=== PATIENT | male | born 1965 | race Caucasian/White ===

== ENCOUNTER 2017-04-13 18:47 | Inpatient (IN) | payer OTHER ==
[~2017-04-13] VITALS: Ht 188 cm; Wt 126.0 kg
[~2017-04-13 18:47] MED LIST: ASPI81TA3 PO; DEXT5TAB17 PO; LEVO75TA84 PO; OMEP20CA16 PO
[2017-04-13] MEDS ORDERED: morphine 4 MG/ML VIAL IV STA (20:51)
[2017-04-13] MEDS ORDERED: ONDANSETRON 4 MG INJ IV STA (20:51)
[2017-04-13] MEDS ORDERED: SOD CHLORIDE 0.9% 1,000 ML IV STA (20:51)
[2017-04-13 21:16] LABS: BASOPHIL # 0.1 10^3/ul (0.0-0.1); BASOPHILS % 0.4 % (0.0-2.0); EOSINOPHILS % 0.2 % (0.0-7.0); HEMATOCRIT 47.6 % (42.0-52.0); HEMOGLOBIN 16.1 g/dl (14.0-18.0); LYMPHOCYTES # 1.4 10^3/ul (0.8-2.9); LYMPHOCYTES % 8.2 % (15.0-51.0); MEAN CORPUSCULAR HEMOGLOBIN 29.3 pg (29.0-33.0); MEAN CORPUSCULAR HGB CONC 33.8 g/dl (32.0-37.0); MEAN CORPUSCULAR VOLUME 86.7 fl (82.0-101.0); MEAN PLATELET VOLUME 10.1 fl (7.4-10.4); MONOCYTE # 0.6 10^3/ul (0.3-0.9); MONOCYTES % 3.3 % (0.0-11.0); NEUTROPHIL # 15.3 10^3/ul (1.6-7.5); NEUTROPHILS % 87.4 % (39.0-77.0); PLATELET COUNT 283 10^3/UL (140-415); RED BLOOD COUNT 5.49 10^6/ul (4.70-6.10); RED CELL DISTRIBUTION WIDTH 12.8 % (11.5-14.5); WHITE BLOOD COUNT 17.5 10^3/ul (4.8-10.8)
[2017-04-13] MEDS ORDERED: HYDROmorphONE 1 MG/ML SYG IV STA ×2 (21:32→23:28)
[2017-04-13] MEDS ORDERED: LEVO112T57 PO (21:42)
[2017-04-13] MEDS ORDERED: AMPH15CA7 PO (21:42)
[2017-04-13] MEDS ORDERED: SIMV20TA PO (21:43)
[2017-04-13] MEDS ORDERED: LOSA25TA5 PO (21:43)
[2017-04-13 21:44] LABS: ADD UMIC YES; ALBUMIN 4.9 g/dl (3.3-4.9); ALBUMIN/GLOBULIN RATIO 1.53; BILIRUBIN,INDIRECT 0.2 mg/dl (0-1.1); BILIRUBIN,TOTAL 0.2 mg/dl (0.2-1.3); CALCIUM 9.9 mg/dl (8.4-10.2); CREATININE 1.23 mg/dl (0.61-1.24); POTASSIUM 4.4 mmol/L (3.5-5.1); TOTAL PROTEIN 8.1 g/dl (6.1-8.1); UR ASCORBIC ACID NEGATIVE (NEGATIVE); UR BACTERIA FEW /HPF (NONE SEEN); UR BILIRUBIN (Dip) NEGATIVE (NEGATIVE); UR BLOOD (Dip) 3+ mg/dL (NEGATIVE); UR CLARITY CLEAR (CLEAR); UR COLOR YELLOW (YELLOW); UR GLUCOSE (Dip) NEGATIVE (NEGATIVE); UR KETONES (Dip) NEGATIVE (NEGATIVE); UR LEUKOCYTE ESTERASE (Dip) 2+ Leu/ul (NEGATIVE); UR MUCUS FEW /HPF (NONE SEEN); UR NITRITE (Dip) NEGATIVE (NEGATIVE); UR RBC 32 /HPF (0-5); UR SPECIFIC GRAVITY (Dip) 1.025 (1.003-1.030); UR TOTAL PROTEIN (Dip) 1+ mg/dl (NEGATIVE); UR UROBILINOGEN (Dip) NEGATIVE (NEGATIVE)
[2017-04-13] MEDS ORDERED: METF500T4 PO (21:44)
[2017-04-13] MEDS ORDERED: OMEP40CA6 PO (21:44)
[2017-04-13] MEDS ORDERED: hydrALAzine 20 MG INJ IV ONE (23:00)
[2017-04-13] MEDS ORDERED: CEFEPIME 1GM/50 ML (PMX) 50 ML IVPB ONE (23:00)
--- NOTE | 2017-04-13 23:15 | RADRPT ---
PROCEDURE: CT abdomen and pelvis without contrast. CLINICAL INDICATION: Right lateral abdominal pain. Flank pain. TECHNIQUE: CT of the abdomen and pelvis was performed without contrast. Coronal and sagittal reform atted images were obtained from the axial source images. Images were reviewed on a high-resolution [employer] workstation. The total exam CTDI equals 23.75 mGy and the total exam DLP equals 1454.39 mGy-cm. DICOM images are available. One or more of the following dose reduction techniques were used: - Automated exposure control. - Adjustment of the mA and/or kV according to patient size. - Use of iterative reconstruction technique. COMPARISON: None available. FINDINGS: Visualized lower thorax: The visualized lung bases are clear. The visualized heart is unremarkable. Hepatobiliary system and spleen: The liver is grossly unremarkable. There is no intra or extrahepat ic biliary ductal dilatation. The gallbladder is grossly unremarkable. The spleen is grossly unremar kable. The pancreas is grossly unremarkable. Adrenal glands and genitourinary system: The adrenal glands are grossly unremarkable. There is an o bstructing 4 mm stone in the distal right ureter with associated mild right hydronephrosis and hydro ureter and right perinephric and periureteral inflammatory change. There is a [address] one at the midportion of the left kidney. There is a punctate nonobstructing stone at the upper pole of the right kidney and a 4 mm nonobstructing stone at the midportion of the right kidney. The urin anup bladder is grossly unremarkable. The prostate gland and seminal vesicles are grossly unremarkabl e. There are moderate bilateral fat containing inguinal hernias. Gastrointestinal system: There is sigmoid diverticulosis without bowel wall thickening or evidence of obstruction. The appendix is in the right lower quadrant and is unremarkable. Peritoneum, vascular, and lymphatics: There is no free intraperitoneal air or free fluid. There is no mesenteric or retroperitoneal adenopathy. The aorta is nonaneurysmal. Musculoskeletal system and soft tissues: There is moderate to severe multilevel degenerative enthes opathy. There are no concerning osseous lesions. The soft tissues are unremarkable. IMPRESSION: 1. Obstructing 4 mm stone in the distal right ureter with associated mild right hydroureteronephros is. 2. Bilateral nonobstructing nephrolithiasis as above. 3. Moderate bilateral fat containing inguinal hernias. 4. Sigmoid diverticulosis. These findings discussed with Justin Bowling in the ED at 2313 hours on 04/13/2017. RPTAT: HLBP .Dhiraj Herrera MD, Date Time Electronically viewed and signed by .Dhiraj Herrera MD, on 04/13/2017 23:15 .P/
[2017-04-13] MEDS ORDERED: OXYCODONE/ACETAMINOPHEN (10/325) TAB PO ONE (23:30)
[2017-04-13] MEDS ORDERED: SOD CHLORIDE 0.9% 1,000 ML IV ONE (23:30)
[2017-04-14] MEDS ORDERED: ONDANSETRON 4 MG INJ IV PRN
[2017-04-14] MEDS ORDERED: AMLODIPINE 10 MG TAB PO ONE
[2017-04-14] MEDS ORDERED: ACETAMINOPHEN 325 MG TAB PO PRN
--- NOTE | 2017-04-14 00:01 | ERD ---
ER Documentation Chief Complaint Chief Complaint bib self, cc: right sided pain since this morning HPI This 51-year-old male presents for right lateral flank/side pain that began this morning. The pain is excruciating and severe. States that he was Sandro taking ciprofloxacin for a urinary tract infection. Has had nausea. Denies chest pain, shortness of breath, fever or chills. He is sharp and nothing is worked for it. ROS All systems reviewed and are negative except as per history of present illness. Medications Home Meds Reported Medications Metformin Hcl* (Metformin Hcl*) 500 Mg Tablet, 500 MG PO WITH BREAKFAST DINNE, # 60 TAB 04/13/17 Omeprazole* (Omeprazole*) 40 Mg Capsule.dr, 40 MG PO DAILY, #30 CAP 04/13/17 Losartan Potassium* (Losartan Potassium*) 25 Mg Tablet, 25 MG PO DAILY, TAB 04/13/17 Simvastatin* (Zocor*) 20 Mg Tablet, 20 MG PO QHS, #30 TAB 04/13/17 Levothyroxine Sodium* (Levothyroxine Sodium*) 112 Mcg Tablet, 112 MCG PO BEFORE BREAKFAST, #30 TAB 04/13/17 Amphet Rhj-Ppblwv-C-Amphet (Adderall XR) 15 Mg Cap.sr.24h, 15 MG PO BID, CAP 04/13/17 Discontinued Reported Medications Aspirin* (Aspirin* Chew) 81 Mg Tab.chew, 81 MG PO DAILY, TAB.CHEW 04/21/16 Omeprazole* (Omeprazole*) 20 Mg Capsule.dr, 20 MG PO BID, #60 CAP 04/21/16 Levothyroxine Sodium* (Synthroid*) 75 Mcg Tablet, 75 MCG PO BEFORE BREAKFAST, # 30 TAB 04/21/16 Amphet Xza-Mqhnov-M-Amphet (Adderall) 5 Mg Tablet, 5 MG PO DAILY, TAB 04/21/16 Allergies Allergies: Coded Allergies: Sulfa (Sulfonamide Antibiotics) (Unverified Allergy, Unknown, 04/13/17) PMhx/Soc History of Surgery: No Anesthesia Reaction: No Hx Neurological Disorder: No Hx Respiratory Disorders: Yes (Sleep apnea) Hx Cardiac Disorders: No Hx Psychiatric Problems: Yes (ADD) Hx Miscellaneous Medical Probl: No Hx Alcohol Use: No Hx Substance Use: No Hx Tobacco Use: No Smoking Status: Never smoker Physical Exam Vitals Vital Signs Date Time Temp Pulse Resp B/P Pulse Ox O2 Delivery O2 Flow Rate FiO2 04/13/17 21:00 98.2 50 12 212/91 100 Room Air 04/13/17 19:45 98.2 66 18 210/102 100 Physical Exam Const: [] Severe distress, screaming, writhing Head: Atraumatic Eyes: Normal Conjunctiva ENT: Normal External Ears, Nose and Mouth. Neck: Full range of motion..~ No meningismus. Resp: Clear to auscultation bilaterally Cardio: Regular bradycardia, no murmurs Abd: Soft, non tender anteriorly, non distended. Normal bowel sounds Skin: No petechiae or rashes Back: No midline or flank tenderness or CVA tenderness difficult to distinguish his patient is in severe pain already. Ext: No cyanosis, or edema Neur: Awake and alert 3, no focal deficits Psych: Normal Mood and Affect Result Diagram: 04/13/17204904/13/172049 Results 24 hrs Laboratory Tests Test 04/13/17 20:06 04/13/17 20:50 Bedside Glucose 166mg/dL White Blood Count 17.510^3/ul Red Blood Count 5.4910^6/ul Hemoglobin 16.1g/dl Hematocrit 47.6% Mean Corpuscular Volume 86.7fl Mean Corpuscular Hemoglobin 29.3pg Mean Corpuscular Hemoglobin Concent 33.8g/dl Red Cell Distribution Width 12.8% Platelet Count 24084^3/UL Mean Platelet Volume 10.1fl Neutrophils % 87.4% Lymphocytes % 8.2% Monocytes % 3.3% Eosinophils % 0.2% Basophils % 0.4% Nucleated Red Blood Cells % 0.0/100WBC Neutrophils # 15.310^3/ul Lymphocytes # 1.410^3/ul Monocytes # 0.610^3/ul Eosinophils # 0.010^3/ul Basophils # 0.110^3/ul Nucleated Red Blood Cells # 0.010^3/ul Urine Color YELLOW Urine Clarity CLEAR Urine pH 5.0 Urine Specific [place] 1.025 Urine Ketones NEGATIVEmg/dL Urine Nitrite NEGATIVEmg/dL Urine Bilirubin NEGATIVEmg/dL Urine Urobilinogen NEGATIVEmg/dL Urine Leukocyte Esterase 2+Leti/ul Urine Microscopic RBC 32/HPF Urine Microscopic WBC 5/HPF Urine Bacteria FEW/HPF Urine Mucus FEW/HPF Urine Hemoglobin 3+mg/dL Urine Glucose NEGATIVEmg/dL Urine Total Protein 1+mg/dl Sodium Level 143mmol/L Potassium Level 4.4mmol/L Chloride Level 102mmol/L Carbon Dioxide Level 27mmol/L Anion Gap 18 Blood Urea Nitrogen 15mg/dl Creatinine 1.23mg/dl Glucose Level 170mg/dl Calcium Level 9.9mg/dl Total Bilirubin 0.2mg/dl Direct Bilirubin 0.00mg/dl Indirect Bilirubin 0.2mg/dl Aspartate Amino Transf (AST/SGOT) 19IU/L Alanine Aminotransferase (ALT/SGPT) 33IU/L Alkaline Phosphatase 103IU/L Troponin I < 0.012ng/ml Total Protein 8.1g/dl Albumin 4.9g/dl Globulin 3.20g/dl Albumin/Globulin Ratio 1.53 Lipase 60U/L Current Medications Medications (Trade) Dose Ordered Sig/Juan Route PRN Reason Start Time Stop Time Status Last Admin Dose Admin Sodium Chloride (NS) 1,000 ml @ 1,000 mls/hr Q1H STAT IV 04/13/17 20:51 04/13/17 21:50 DC 04/13/17 21:10 Morphine Sulfate (morphine) 8 mg ONCE STAT IV 04/13/17 20:51 04/13/17 20:53 DC 04/13/17 21:10 Ondansetron HCl (Zofran Inj) 4 mg ONCE STAT IV 04/13/17 20:51 04/13/17 20:53 DC 04/13/17 21:09 Hydromorphone HCl 1 mg 1 mg ONCE STAT IV 04/13/17 21:32 04/13/17 21:34 DC 04/13/17 21:45 Cefepime HCl (Maxipime 1gm/50 ml (Pmx)) 50 ml @ 100 mls/hr ONCE ONCE IVPB 04/13/17 23:00 04/13/17 23:29 DC 04/13/17 23:29 Hydralazine HCl (Apresoline) 10 mg ONCE ONCE IV 04/13/17 23:00 04/13/17 23:01 DC 04/13/17 23:30 Hydromorphone HCl (Dilaudid) 1 mg ONCE STAT IV 04/13/17 23:28 04/13/17 23:29 DC 12/12/17 23:41 Oxycodone/ Acetaminophen 1 tab 1 tab ONCE ONCE PO 04/13/17 23:30 04/13/17 23:31 DC Sodium Chloride (NS) 1,000 ml @ 1,000 mls/hr Q1H ONCE IV 04/13/17 23:30 04/14/17 00:29 Ondansetron HCl (Zofran Inj) 4 mg BRIDGE ORDER PRN IV NAUSEA AND/OR VOMITING 04/14/17 00:00 04/14/17 23:59 Acetaminophen (Tylenol Tab) 650 mg ER BRIDGE PRN PO MILD PAIN/FEVER 04/14/17 00:00 04/14/17 23:59 Amlodipine Besylate (Norvasc) 10 mg ONCE ONCE PO 04/14/17 00:00 04/14/17 00:01 Procedures/MDM Ureteral stone with intractable pain as well as UTI. Patient was given IV fluids Zofran initially 8 mg of morphine which took the edge off his pain he still had severe pain was given a milligram of Dilaudid. This helped his pain differently for short time although he still remained severely hypertensive in the meantime. He was given labetalol for the hypertension quite additionally Dilaudid when pain returned. He was also given a gram of cefepime and urine culture was obtained. Patient can be discharged home because his pain returns immediately after Dilaudid wears off. I do not have suspicion for drug-seeking in this patient. Did have bradycardia but this was consistent and stable. Has no chest pain or shortness of breath. Patient has knee surgery scheduled for tomorrow and still may be able to have that done. Spoke with Dr. Valencia will be admitting. CT abdomen pelvis interpretation: 4 mm distal ureteral stone with mild hydronephrosis. No bowel obstruction, no free air, no abnormal fat stranding, no fractures. EKG interpretation: Sinus bradycardia rate of 51, normal axis, no ST or T-wave changes concerning for acute ischemia. Normal intervals. Normal except for bradycardia. Monitor interpretation: Consistent sinus bradycardia rate of high 40s and 50s. No arrhythmia Departure Diagnosis: Primary Impression: Intractable pain Additional Impressions: Ureteral stone UTI (urinary tract infection) Condition: Serious PATY LOPEZ DO Apr 14, 2017 00:01
[2017-04-14] MEDS ORDERED: NACL 0.9% 3 ML SYG IV SCH (00:30)
[2017-04-14 01:00] VITALS: TEMP 98.2
[2017-04-14] MEDS ORDERED: hydrALAzine 20 MG INJ IV PRN (01:00)
[2017-04-14 01:48] VITALS: BP 185/80; PULSE 58; RESP 18; Ht 188 cm; Wt 126.0 kg
[2017-04-14 02:30] VITALS: BP 130/70; PULSE 82; RESP 18
[2017-04-14] MEDS: SOD CHLORIDE 0.9% 1,000 ML IV SCH ×4 (02:34→20:01)
[2017-04-14] MEDS: LEVOFLOXACIN 750MG/D5W (PMX) 150 ML IVPB SCH (02:35)
[2017-04-14] MEDS: TAMSULOSIN (SR) 0.4 MG CAP PO SCH ×3 (02:35→20:55)
[2017-04-14 05:13] LABS: BASOPHILS % 0.2 % (0.0-2.0); EOSINOPHILS # 0.1 10^3/ul (0.0-0.5); EOSINOPHILS % 0.3 % (0.0-7.0); HEMATOCRIT 40.4 % (42.0-52.0); HEMOGLOBIN 14.2 g/dl (14.0-18.0); LYMPHOCYTES # 2.1 10^3/ul (0.8-2.9); LYMPHOCYTES % 12.8 % (15.0-51.0); MEAN CORPUSCULAR HGB CONC 35.1 g/dl (32.0-37.0); MEAN CORPUSCULAR VOLUME 85.4 fl (82.0-101.0); MEAN PLATELET VOLUME 10.1 fl (7.4-10.4); MONOCYTE # 0.9 10^3/ul (0.3-0.9); MONOCYTES % 5.3 % (0.0-11.0); NEUTROPHIL # 13.1 10^3/ul (1.6-7.5); NEUTROPHILS % 80.9 % (39.0-77.0); PLATELET COUNT 230 10^3/UL (140-415); RED BLOOD COUNT 4.73 10^6/ul (4.70-6.10); RED CELL DISTRIBUTION WIDTH 13.1 % (11.5-14.5); WHITE BLOOD COUNT 16.2 10^3/ul (4.8-10.8)
[2017-04-14 05:34] LABS: ALBUMIN 3.6 g/dl (3.3-4.9); ALBUMIN/GLOBULIN RATIO 1.28; BILIRUBIN,INDIRECT 0.4 mg/dl (0-1.1); BILIRUBIN,TOTAL 0.4 mg/dl (0.2-1.3); CALCIUM 8.9 mg/dl (8.4-10.2); CREATININE 0.92 mg/dl (0.61-1.24); MAGNESIUM 1.6 mg/dl (1.7-2.5); TOTAL PROTEIN 6.4 g/dl (6.1-8.1)
[2017-04-14 05:56] LABS: THYROID STIMULATING HORMONE 5.03 MIU/L (0.465-4.680)
[2017-04-14] MEDS: CEPASTAT LOZENGE MT PRN (06:27)
[2017-04-14 08:24] VITALS: BP 152/81; RESP 18
--- NOTE | 2017-04-14 08:43 | HP ---
Date/Time of Note Date/Time of Note DATE: 04/14/17 TIME: 08:32 Assessment/Plan VTE Prophylaxis VTE Prophylaxis Intervention: SCD's Lines/Catheters IV Catheter Type (from [facility]): Peripheral IV Urinary Cath still in place: No Assessment/Plan Chief Complaint/Hosp Course This is a 51-year-old male being admitted to the [facility] for: #1 symptomatic nephrolithiasis: CT scan of the abdomen pelvis shows:Obstructing 4 mm stone in the distal right ureter with associated mild right hydroureteronephrosis. Bilateral nonobstructing nephrolithiasis as above. The current time patient is afebrile. He does also have a urinary tract infection. Will provide patient with aggressive fluid hydration. Will put patient on Flomax twice daily. Dilaudid IV for pain control. Will consult urology. #2 nephrolithiasis: Patient has multiple stones varying in size please see CT report for further details. There also is an obstructing 4 mm stone in the distal ureter. The current time will put patient on Flomax. Aggressive fluid hydration. Again we will consult urology. #3 mild right hydroureteronephrosis: Again patient is urinating without difficulty. Will provide aggressive IV fluid hydration. Flomax. Will consult urology. #4 urinary tract infection: Start the patient on Levaquin, will obtain urine culture. #5 diabetes: We will hold patient's metformin. Start insulin sliding scale. Keep the patient n.p.o. at this time. #6 ADHD: Resume patient on medication #7 postnasal drip: Resume patient's home PPI which was provided by his ENT #8 hyperlipidemia: Continue statin #9 obesity: We will check a thyroid panel, lipid panel, A1c #10 hypothyroidism: Continue levothyroxine check a TSH #11 left meniscal injury: Patient was scheduled to have an arthroscopic surgery today by orthopedic surgery. We will contact the surgeon Dr. MARIN and update them on the patient's current clinical condition. #12 DVT GI prophylaxis: SCDs, home PPI Further treatment strategy will be implemented as per the clinical course Problems: HPI/ROS Admit Date/Time Admit Date/Time Apr 13, 2017 at 23:49 Hx of Present Illness Chief complaint: right flank pain This is a 51-year-old male who presented to the emergency department complaining of right-sided flank pain. Patient stated the pain was severe and started on his right flank and then moved towards the right lower abdomen. He was expressing some nausea. Pain is the most severe pain is felt in his life. He did receive relief from Dilaudid in the ED. He denies any known history of kidney stones. Of note patient also scheduled to have on 04/14 a left knee arthroscopy for meniscal injury, like us to contact his surgeon Dr. Marin. Allergies: Sulfa Medications: See JUL ROS Const: As per HPI Eyes : No pain discharge or redness or change in visual acuity ENT: No pain, sore throat, congestion, congestion, dysphagia or discharge Respiratory: No shortness of breath, cough, sputum, wheezing, or pleuritic pain Cardiovascular: No chest pain, palpitation, PND, or edema GI : no change in appetite, abdominal pain, nausea, vomiting, diarrhea, constipation, or change in the color his stool Genitourinary: As per HPI Musculoskeletal: No joint pain, back pain, neck pain, restricted range of motion in neck or joints Skin: No rash, bruising or hives Neuro: No headache, dizziness, syncope, seizure, focal weakness Endocrine: No polyuria, polydipsia, temperature intolerance Psych: No hallucination, depression, anxiety or suicidal ideation PMH/Family/Social Past Medical History Diabetes mellitus, hypothyroidism, hypertension, hyperlipidemia, attention deficit disorder, postnasal drip, left meniscal tear Past Surgical History Past Surgical Hx: no surgical history Family History Significant Family History: no pertinent family hx Social History Alcohol Use: none Smoking Status: Never smoker Drug Use: none Exam/Review of Systems Vital Signs Vitals Vital Signs Date Time Temp Pulse Resp B/P Pulse Ox O2 Delivery O2 Flow Rate FiO2 04/14/17 08:24 98.6 18 18 152/81 96 04/14/17 02:30 Room Air Intake and Output 04/13/17 04/13/17 04/14/17 15:00 23:00 07:00 Intake Total 1500 ml Output Total 1900 ml Balance -400 ml Exam Exam General: Patient is an obese male lying in bed comfortably at this time in no acute distress HEENT: Atraumatic, normocephalic. The pupils are equal, round and reactive. Extraocular motor are intact Neck: Supple with full range of motion. No rigidity or meningismus Chest: Nontender Lungs: Clear to auscultation bilaterally no crackles rales or wheezing Heart: Normal S1-S2, Regular rhythm and rate. No murmur, S3, or S4 Abdomen: Soft , nontender, nondistended , bowel sounds are present. No guarding no rebound tenderness , No masses or organomegaly. No costovertebral temporal angle mass Extremities: Normal to inspection, no edema no cyanosis Genitourinary: No CVA tenderness bilaterally. Neurologic: Normal mental status, speech normal, cranial nerves II through XII are intact, motor and sensory are intact, no focal weakness Additional Comments PROCEDURE: CT abdomen and pelvis without contrast. CLINICAL INDICATION: Right lateral abdominal pain. Flank pain. TECHNIQUE: CT of the abdomen and pelvis was performed without contrast. Coronal and sagittal reformatted images were obtained from the axial source images. Images were reviewed on a high-resolution [employer] workstation. The total exam CTDI equals 23.75 mGy and the total exam DLP equals 1454.39 mGy-cm. DICOM images are available. One or more of the following dose reduction techniques were used: - Automated exposure control. - Adjustment of the mA and/or kV according to patient size. - Use of iterative reconstruction technique. COMPARISON: None available. FINDINGS: Visualized lower thorax: The visualized lung bases are clear. The visualized heart is unremarkable. Hepatobiliary system and spleen: The liver is grossly unremarkable. There is no intra or extrahepatic biliary ductal dilatation. The gallbladder is grossly unremarkable. The spleen is grossly unremarkable. The pancreas is grossly unremarkable. Adrenal glands and genitourinary system: The adrenal glands are grossly unremarkable. There is an obstructing 4 mm stone in the distal right ureter with associated mild right hydronephrosis and hydroureter and right perinephric and periureteral inflammatory change. There is a 6 mm nonobstructing stone at the midportion of the left kidney. There is a punctate nonobstructing stone at the upper pole of the right kidney and a 4 mm nonobstructing stone at the midportion of the right kidney. The urinary bladder is grossly unremarkable. The prostate gland and seminal vesicles are grossly unremarkable. There are moderate bilateral fat containing inguinal hernias. Gastrointestinal system: There is sigmoid diverticulosis without bowel wall thickening or evidence of obstruction. The appendix is in the right lower quadrant and is unremarkable. Peritoneum, vascular, and lymphatics: There is no free intraperitoneal air or free fluid. There is no mesenteric or retroperitoneal adenopathy. The aorta is nonaneurysmal. Musculoskeletal system and soft tissues: There is moderate to severe multilevel degenerative enthesopathy. There are no concerning osseous lesions. The soft tissues are unremarkable. IMPRESSION: 1. Obstructing 4 mm stone in the distal right ureter with associated mild right hydroureteronephrosis. 2. Bilateral nonobstructing nephrolithiasis as above. 3. Moderate bilateral fat containing inguinal hernias. 4. Sigmoid diverticulosis. These findings discussed with Paty Lopez in the ED at 2313 hours on 2016. RPTAT: HLBP .Dhiraj Herrera MD, MD Date Time Electronically viewed and signed by .Dhiraj Herrera MD, on 04/13/2017 23:15 .P/ CC: PATY LOPEZ DO Labs Result Diagram: 04/14/17 04404/14/17 0441 Medications Medications Current Medications Sodium Chloride (NS) 1,000 ml @ 150 mls/hr Q6H40M IV Last administered on 02:34; Admin Dose 150 MLS/HR; Start 04/14/17 at 00:15 Hydromorphone HCl (Dilaudid) 1 mg Q3H PRN IV PAIN LEVEL 7-10; Start 04/14/17 at 00:30 Tamsulosin HCl 0.4 mg 0.4 mg BID PO Last administered on 04/14/17 02:35; Admin Dose 0.4 MG; Start 04/14/17 at 00:30 Levofloxacin/ Dextrose (Levaquin 750 Mg/ D5W 150 ml (Pmx)) 150 ml @ 100 mls/hr Q24H IVPB Last administered on 04/14/17 02:35; Admin Dose 100 MLS/HR; Start 04/14/17 at 00:30 Hydralazine HCl (Apresoline) 10 mg Q4H PRN IV ELEVATED SYSTOLIC BP; Start at 01:00 Phenol (Cepastat Lozenge) 1 lozenge Q1H PRN MT soar throat Last administered on 04/14/17 06:27; Admin Dose 1 LOZENGE; Start 04/14/17 at 04:30 ROSA GARDUNO Apr 14, 2017 08:42
--- NOTE | 2017-04-14 08:47 | CONS ---
Date/Time of Note Date/Time of Note DATE: 04/14/17 TIME: 08:38 Assessment/Plan Assessment/Plan Chief Complaint/Hosp Course 51-year-old male presented to the emergency room was right flank pain, CT scan of the abdomen and pelvis showed a 4 mm stone in the distal right ureter was right hydronephrosis in addition to bilateral kidney stones. The kidney stones are not obstructing. Plan is to strain the urine, give him pain medications, continue the Flomax and get a KUB to see if the stone is radiopaque. He should be able to pass the stone on his own and if he does not we could always do a cystoscopy right ureteroscopy laser lithotripsy and remove the stone Problems: Consultation Date/Type/Reason Admit Date/Time Apr 13, 2017 at 23:49 Date of Consultation: Apr 14, 2017 Type of Consultation: Urology Reason for Consultation Distal right ureteral stone Referring Provider: ROSA GARDUNO Hx of Present Illness 51-year-old male presented to the emergency room was right flank pain. CT scan of the abdomen and pelvis showed distal right ureteral stone with hydronephrosis. The patient denies having any history of kidney stones before. Constitutional: no complaints Eyes: no complaints ENT: no complaints Respiratory: no complaints Cardiovascular: no complaints Gastrointestinal: No nausea, No vomiting Genitourinary: flank pain, No dysuria Musculoskeletal: no complaints, other (Left knee pain, he was supposed to have arthroscopy for the knee today) Skin: no complaints Neurologic: no complaints Endocrine: no complaints Lymphatic: no complaints Psychological: no complaints Past Medical History Medical History: diabetes, high cholesterol, hypertension, hypothyroid, other ( Obesity) Past Surgical History Past Surgical Hx: no surgical history Social History Smoking Status: Never smoker Exam/Review of Systems Vital Signs Vitals Vital Signs Date Time Temp Pulse Resp B/P Pulse Ox O2 Delivery O2 Flow Rate FiO2 04/14/17 08:24 98.6 18 18 152/81 96 04/14/17 02:30 Room Air Intake and Output 04/13/17 04/13/17 04/14/17 15:00 23:00 07:00 Intake Total 1500 ml Output Total 1900 ml Balance -400 ml Exam Constitutional: alert, oriented Psych: no complaints Head: normocephalic Eyes: nl conjunctiva ENMT: nl external ears & nose Neck: supple Respiratory: normal air movement Cardiovascular: No jugular venous distention (JVD) Gastrointestinal: soft Genitourinary - Male: CVA tenderness (Right side), nl penis, nl scrotum Musculoskeletal: nl extremities to inspection Extremities: other (Left knee pain) Skin: nl turgor Lymph: nl lymph nodes Results Result Diagram: 04/14/17 0441 04/14/17 0441 Results 24 hrs Laboratory Tests Test 04/13/17 20:06 04/13/17 20:50 04/14/17 04:41 Bedside Glucose 166 White Blood Count 17.5 H 16.2 H Red Blood Count 5.49 4.73 Hemoglobin 16.1 14.2 Hematocrit 47.6 40.4 L Mean Corpuscular Volume 86.7 85.4 Mean Corpuscular Hemoglobin 29.3 30.0 Mean Corpuscular Hemoglobin Concent 33.8 35.1 Red Cell Distribution Width 12.8 13.1 Platelet Count 283 230 Mean Platelet Volume 10.1 10.1 Neutrophils % 87.4 H 80.9 H Lymphocytes % 8.2 L 12.8 L Monocytes % 3.3 5.3 Eosinophils % 0.2 0.3 Basophils % 0.4 0.2 Nucleated Red Blood Cells % 0.0 0.0 Neutrophils # 15.3 H 13.1 H Lymphocytes # 1.4 2.1 Monocytes # 0.6 0.9 Eosinophils # 0.0 0.1 Basophils # 0.1 0.0 Nucleated Red Blood Cells # 0.0 0.0 Urine Color YELLOW Urine Clarity CLEAR Urine pH 5.0 Urine Specific [place] 1.025 Urine Ketones NEGATIVE Urine Nitrite NEGATIVE Urine Bilirubin NEGATIVE Urine Urobilinogen NEGATIVE Urine Leukocyte Esterase 2+ H Urine Microscopic RBC 32 H Urine Microscopic WBC 5 Urine Bacteria FEW A Urine Mucus FEW A Urine Hemoglobin 3+ H Urine Glucose NEGATIVE Urine Total Protein 1+ H Sodium Level 143 140 Potassium Level 4.4 4.0 Chloride Level 102 105 Carbon Dioxide Level 27 26 Anion Gap 18 H 13 Blood Urea Nitrogen 15 12 Creatinine 1.23 0.92 Glucose Level 170 124 # Calcium Level 9.9 8.9 Total Bilirubin 0.2 0.4 Direct Bilirubin 0.00 0.00 Indirect Bilirubin 0.2 0.4 Aspartate Amino Transf (AST/SGOT) 19 17 Alanine Aminotransferase (ALT/SGPT) 33 26 Alkaline Phosphatase 103 69 Troponin I < 0.012 Total Protein 8.1 6.4 # Albumin 4.9 3.6 # Globulin 3.20 2.80 Albumin/Globulin Ratio 1.53 1.28 Lipase 60 Activated Partial Thromboplast Time 29.5 Hemoglobin A1c 5.8 Magnesium Level 1.6 L Thyroid Stimulating Hormone (TSH) 5.030 H Imaging Free Text/Dictation CT scan of the abdomen and pelvis 1. Obstructing 4 mm stone in the distal right ureter with associated mild right hydroureteronephrosis. 2. Bilateral nonobstructing nephrolithiasis 3. Moderate bilateral fat containing inguinal hernias. 4. Sigmoid diverticulosis. Medications Medications Current Medications Sodium Chloride (NS) 1,000 ml @ 150 mls/hr Q6H40M IV Last administered on 02:34; Admin Dose 150 MLS/HR; Start 04/14/17 at 00:15 Hydromorphone HCl (Dilaudid) 1 mg Q3H PRN IV PAIN LEVEL 7-10; Start 04/14/17 at 00:30 Tamsulosin HCl 0.4 mg 0.4 mg BID PO Last administered on 04/14/17 02:35; Admin Dose 0.4 MG; Start 04/14/17 at 00:30 Levofloxacin/ Dextrose (Levaquin 750 Mg/ D5W 150 ml (Pmx)) 150 ml @ 100 mls/hr Q24H IVPB Last administered on 04/14/17 02:35; Admin Dose 100 MLS/HR; Start 04/14/17 at 00:30 Hydralazine HCl (Apresoline) 10 mg Q4H PRN IV ELEVATED SYSTOLIC BP; Start at 01:00 Phenol 1 lozenge 1 lozenge Q1H PRN MT soar throat Last administered on 06:27; Admin Dose 1 LOZENGE; Start 04/14/17 at 04:30 Magnesium Sulfate (Magnesium Sulfate 2 Gm/50 ml) 50 ml @ 25 mls/hr ONCE ONCE IVPB ; Start 04/14/17 at 08:30; Stop 04/14/17 at 10:29; Status UNV Miscellaneous Information 15 mg BID PO ; Start 04/14/17 at 09:00; Status UNV Miscellaneous Information 40 mg DAILY PO ; Start 04/14/17 at 09:00; Status UNV Miscellaneous Information 20 mg QHS PO ; Start 04/14/17 at 21:00; Status JOEYV ANGELIQUE RUIZ MD Apr 14, 2017 08:47
[2017-04-14] MEDS ORDERED: MAGNESIUM SULFATE 2 GM/50 ML 50 ML IVPB ONE (09:00)
[2017-04-14] MEDS ORDERED: AMPHET ASP AMPHET D AMPHET PO SCH (09:00)
[2017-04-14] MEDS: HYDROmorphONE 0.5 MG/0.5 ML SYG IV PRN ×2 (09:09→14:15)
--- NOTE | 2017-04-14 13:59 | PN ---
Date/Time of Note Date/Time of Note DATE: 04/14/17 TIME: 13:59 Assessment/Plan VTE Prophylaxis VTE Prophylaxis Intervention: SCD's Lines/Catheters IV Catheter Type (from Nrsg): Peripheral IV Urinary Cath still in place: No Assessment/Plan Assessment/Plan 1. Nephrolithiasis with hydroureteronephrosis - Patient still experiencing significant amount of pain. Will add Toradol for short time PRN for pain in addition to [place]. Had Dilaudid on board and advised to ask for the other medications first - Dr. Hernandes on board and recommendations appreciated. KUB ordered for tomorrow and continue aggressive hydration, Flomax, and believes patient should pass stone on his own. If not may need cystoscopy, lithotripsy, and removal of stone. - CT scan of the abdomen pelvis shows "Obstructing 4 mm stone in the distal right ureter with associated mild right hydroureteronephrosis. Bilateral nonobstructing nephrolithiasis as above." 2. UTI - Patient started on levaquin - cultures pending 3. DM - holding home metformin - ISS and accuchecks - Carb control diet 4. ADHD - continue on home medication 5. Postnasal drip - continue home PPI which was provided by his ENT 6. hyperlipidemia - Continue statin 7. obesity 8. Hypothyroidism - Continue levothyroxine - TSH slightly elevated and will advise to have TSH checked once acute issues resolve 9. Left meniscal injury - Scheduled for an arthroscopic surgery today by orthopedic surgery. Dr. Marin aware and postponing surgery 10. Disposition - continue monitoring until improvement in condition Subjective 24 Hr Interval Summary Free Text/Dictation Patient still experiencing significant amount of pain and got a little relief with Dilaudid. Patient does not believe he has passed the stone yet. Pain is worse with change in positioning. Exam/Review of Systems Vital Signs Vitals Vital Signs Date Time Temp Pulse Resp B/P Pulse Ox O2 Delivery O2 Flow Rate FiO2 04/14/17 08:24 98.6 18 18 152/81 96 04/14/17 02:30 Room Air Intake and Output 04/13/17 04/13/17 04/14/17 14:59 22:59 06:59 Intake Total 1500 ml Output Total 1900 ml Balance -400 ml Exam General: Obese male, distress with movement secondary to pain HEENT: NC/AT. PERRL, EOMI Neck: Supple with full range of motion. Lungs: Clear to auscultation bilaterally no crackles rales or wheezing Heart: Normal S1-S2, Regular rhythm and rate. No murmur, S3, or S4 Abdomen: Soft , nontender, nondistended , bowel sounds are present. No guarding no rebound tenderness Extremities: Normal to inspection, no edema no cyanosis Genitourinary: No CVA tenderness bilaterally. Neurologic: Normal mental status, speech normal, cranial nerves II through XII are intact, motor and sensory are intact, no focal weakness Results Result Diagram: 04/14/1744004/14/17440 Results 24 hrs Laboratory Tests Test 04/13/17 20:06 04/13/17 20:50 04/14/17 04:41 Bedside Glucose 166 White Blood Count 17.5 H 16.2 H Red Blood Count 5.49 4.73 Hemoglobin 16.1 14.2 Hematocrit 47.6 40.4 L Mean Corpuscular Volume 86.7 85.4 Mean Corpuscular Hemoglobin 29.3 30.0 Mean Corpuscular Hemoglobin Concent 33.8 35.1 Red Cell Distribution Width 12.8 13.1 Platelet Count 283 230 Mean Platelet Volume 10.1 10.1 Neutrophils % 87.4 H 80.9 H Lymphocytes % 8.2 L 12.8 L Monocytes % 3.3 5.3 Eosinophils % 0.2 0.3 Basophils % 0.4 0.2 Nucleated Red Blood Cells % 0.0 0.0 Neutrophils # 15.3 H 13.1 H Lymphocytes # 1.4 2.1 Monocytes # 0.6 0.9 Eosinophils # 0.0 0.1 Basophils # 0.1 0.0 Nucleated Red Blood Cells # 0.0 0.0 Urine Color YELLOW Urine Clarity CLEAR Urine pH 5.0 Urine Specific [place] 1.025 Urine Ketones NEGATIVE Urine Nitrite NEGATIVE Urine Bilirubin NEGATIVE Urine Urobilinogen NEGATIVE Urine Leukocyte Esterase 2+ H Urine Microscopic RBC 32 H Urine Microscopic WBC 5 Urine Bacteria FEW A Urine Mucus FEW A Urine Hemoglobin 3+ H Urine Glucose NEGATIVE Urine Total Protein 1+ H Sodium Level 143 140 Potassium Level 4.4 4.0 Chloride Level 102 105 Carbon Dioxide Level 27 26 Anion Gap 18 H 13 Blood Urea Nitrogen 15 12 Creatinine 1.23 0.92 Glucose Level 170 124 # Calcium Level 9.9 8.9 Total Bilirubin 0.2 0.4 Direct Bilirubin 0.00 0.00 Indirect Bilirubin 0.2 0.4 Aspartate Amino Transf (AST/SGOT) 19 17 Alanine Aminotransferase (ALT/SGPT) 33 26 Alkaline Phosphatase 103 69 Troponin I < 0.012 Total Protein 8.1 6.4 # Albumin 4.9 3.6 # Globulin 3.20 2.80 Albumin/Globulin Ratio 1.53 1.28 Lipase 60 Activated Partial Thromboplast Time 29.5 Hemoglobin A1c 5.8 Magnesium Level 1.6 L Thyroid Stimulating Hormone (TSH) 5.030 H Medications Medications Current Medications Sodium Chloride (NS) 1,000 ml @ 150 mls/hr Q6H40M IV Last administered on 09:11; Admin Dose 150 MLS/HR; Start 04/14/17 at 00:15 Hydromorphone HCl (Dilaudid) 1 mg Q3H PRN IV PAIN LEVEL 7-10 Last administered on 04/14/17 09:09; Admin Dose 1 MG; Start 04/14/17 at 00:30 Tamsulosin HCl 0.4 mg 0.4 mg BID PO Last administered on 04/14/17 09:01; Admin Dose 0.4 MG; Start 04/14/17 at 00:30 Levofloxacin/ Dextrose (Levaquin 750 Mg/ D5W 150 ml (Pmx)) 150 ml @ 100 mls/hr Q24H IVPB Last administered on 04/14/17 02:35; Admin Dose 100 MLS/HR; Start 04/14/17 at 00:30 Hydralazine HCl (Apresoline) 10 mg Q4H PRN IV ELEVATED SYSTOLIC BP; Start at 01:00 Phenol (Cepastat Lozenge) 1 lozenge Q1H PRN MT soar throat Last administered on 04/14/17 06:27; Admin Dose 1 LOZENGE; Start 04/14/17 at 04:30 Miscellaneous Information 15 mg BID PO ; Start 04/14/17 at 09:00; Status UNV Pantoprazole (Protonix Tab) 40 mg DAILY@06 PO ; Start 04/15/17 at 06:00 Atorvastatin Calcium (Lipitor) 10 mg DAILY@21 PO ; Start 04/14/17 at 21:00 Ketorolac Tromethamine (Toradol) 30 mg Q6H PRN IV PAIN; Start 04/14/17 at 14: 00; Stop 04/17/17 at 13:59 Acetaminophen/ Hydrocodone Bitart ([place] (7.5-325)) 1 tab Q4H PRN PO pain; Start 04/14/17 at 14:00 TAO MALAVE MD Apr 14, 2017 13:59
[2017-04-14] MEDS ORDERED: HYDROCODONE/APAP (7.5/325) TAB PO PRN (14:00)
[2017-04-14] MEDS: KETOROLAC 30 MG INJ IV PRN (14:12)
[2017-04-14 15:03] VITALS: BP 125/69; RESP 18
[2017-04-14] MEDS: LOSARTAN 25 MG TAB PO SCH (16:29)
[2017-04-14 19:49] VITALS: BP 126/66; RESP 18
[2017-04-14] MEDS: ATORVASTATIN 10 MG TAB PO SCH (20:55)
[2017-04-15] MEDS: LEVOFLOXACIN 750MG/D5W (PMX) 150 ML IVPB SCH (00:48)
[2017-04-15 01:40] VITALS: BP 144/86; RESP 18
[2017-04-15] MEDS: SOD CHLORIDE 0.9% 1,000 ML IV SCH ×3 (03:44→18:24)
[2017-04-15 05:14] LABS: BASOPHILS % 0.3 % (0.0-2.0); EOSINOPHILS # 0.2 10^3/ul (0.0-0.5); EOSINOPHILS % 1.7 % (0.0-7.0); HEMATOCRIT 37.8 % (42.0-52.0); HEMOGLOBIN 13.1 g/dl (14.0-18.0); LYMPHOCYTES % 27.6 % (15.0-51.0); MEAN CORPUSCULAR HEMOGLOBIN 29.7 pg (29.0-33.0); MEAN CORPUSCULAR HGB CONC 34.7 g/dl (32.0-37.0); MEAN CORPUSCULAR VOLUME 85.7 fl (82.0-101.0); MONOCYTE # 0.7 10^3/ul (0.3-0.9); MONOCYTES % 6.6 % (0.0-11.0); NEUTROPHIL # 6.9 10^3/ul (1.6-7.5); NEUTROPHILS % 63.4 % (39.0-77.0); PLATELET COUNT 187 10^3/UL (140-415); RED BLOOD COUNT 4.41 10^6/ul (4.70-6.10); RED CELL DISTRIBUTION WIDTH 12.9 % (11.5-14.5); WHITE BLOOD COUNT 10.8 10^3/ul (4.8-10.8)
[2017-04-15] MEDS: HYDROmorphONE 0.5 MG/0.5 ML SYG IV PRN (05:18)
[2017-04-15] MEDS: PANTOPRAZOLE (EC) 40 MG TAB PO SCH (05:18)
[2017-04-15 05:42] LABS: ALBUMIN 3.2 g/dl (3.3-4.9); CALCIUM 8.7 mg/dl (8.4-10.2); CREATININE 1.1 mg/dl (0.61-1.24); PHOSPHORUS 3.4 mg/dl (2.5-4.9)
[2017-04-15] MEDS: LEVOTHYROXINE 112 MCG TAB PO SCH (06:33)
[2017-04-15 07:57] VITALS: BP 118/63; RESP 18
--- NOTE | 2017-04-15 08:36 | CONS ---
Date/Time of Note Date/Time of Note DATE: 04/15/17 TIME: 08:33 Consult Date/Type/Reason Admit Date/Time Apr 13, 2017 at 23:49 Initial Consult Date 04/14/17 Type of Consultation: Urology Reason for Consultation Distal right ureteral stone Ordering Provider: ROSA GARDUNO Subjective Patient states he did have pain earlier this morning. He has been voiding and no stone has passed Objective Vital Signs Date Time Temp Pulse Resp B/P Pulse Ox O2 Delivery O2 Flow Rate FiO2 04/15/17 07:57 98.2 63 18 118/63 95 04/14/17 02:30 Room Air Intake and Output 04/14/17 04/14/17 04/15/17 15:00 23:00 07:00 Intake Total 2000 ml 2500 ml 2300 ml Output Total 2100 ml 2400 ml Balance 2000 ml 400 ml -100 ml Exam Right flank tenderness otherwise abdomen is soft, KUB was done.there may be a stone in the distal right ureter Results/Medications Result Diagram: 04/15/17 0444 04/15/17 0444 Results 24 hrs Laboratory Tests Test 04/15/17 04:44 White Blood Count 10.8 # Red Blood Count 4.41 L Hemoglobin 13.1 L Hematocrit 37.8 L Mean Corpuscular Volume 85.7 Mean Corpuscular Hemoglobin 29.7 Mean Corpuscular Hemoglobin Concent 34.7 Red Cell Distribution Width 12.9 Platelet Count 187 Mean Platelet Volume 10.0 Neutrophils % 63.4 Lymphocytes % 27.6 Monocytes % 6.6 Eosinophils % 1.7 Basophils % 0.3 Nucleated Red Blood Cells % 0.0 Neutrophils # 6.9 Lymphocytes # 3.0 H Monocytes # 0.7 Eosinophils # 0.2 Basophils # 0.0 Nucleated Red Blood Cells # 0.0 Sodium Level 139 Potassium Level 4.0 Chloride Level 105 Carbon Dioxide Level 26 Anion Gap 12 Blood Urea Nitrogen 12 Creatinine 1.10 Glucose Level 126 Calcium Level 8.7 Phosphorus Level 3.4 Magnesium Level 2.0 Albumin 3.2 L Medications Current Medications Sodium Chloride (NS) 1,000 ml @ 150 mls/hr Q6H40M IV Last administered on t 03:44; Admin Dose 150 MLS/HR; Start 04/14/17 at 00:15 Hydromorphone HCl (Dilaudid) 1 mg Q3H PRN IV PAIN LEVEL 7-10 Last administered on 04/15/17 05:18; Admin Dose 1 MG; Start 04/14/17 at 00:30 Tamsulosin HCl 0.4 mg 0.4 mg BID PO Last administered on 04/14/17 20:55; Admin Dose 0.4 MG; Start 04/14/17 at 00:30 Levofloxacin/ Dextrose (Levaquin 750 Mg/ D5W 150 ml (Pmx)) 150 ml @ 100 mls/hr Q24H IVPB Last administered on 04/15/17 00:48; Admin Dose 100 MLS/HR; Start 04/14/17 at 00:30 Hydralazine HCl (Apresoline) 10 mg Q4H PRN IV ELEVATED SYSTOLIC BP; Start at 01:00 Phenol (Cepastat Lozenge) 1 lozenge Q1H PRN MT soar throat Last administered on 04/14/17 06:27; Admin Dose 1 LOZENGE; Start 04/14/17 at 04:30 Miscellaneous Information 15 mg BID PO ; Start 04/14/17 at 09:00; Status UNV Pantoprazole (Protonix Tab) 40 mg DAILY@06 PO Last administered on 04/15/17 05:18; Admin Dose 40 MG; Start 04/15/17 at 06:00 Atorvastatin Calcium (Lipitor) 10 mg DAILY@21 PO Last administered on 20:55; Admin Dose 10 MG; Start 04/14/17 at 21:00 Ketorolac Tromethamine (Toradol) 30 mg Q6H PRN IV PAIN Last administered on 14:12; Admin Dose 30 MG; Start 04/14/17 at 14:00; Stop 04/17/17 at 13: 59 Acetaminophen/ Hydrocodone Bitart ([place] (7.5-325)) 1 tab Q4H PRN PO pain Last administered on 04/14/17 23:02; Admin Dose 1 TAB; Start 04/14/17 at 14:00 Losartan Potassium (Cozaar) 25 mg DAILY PO Last administered on 04/14/17 16: 29; Admin Dose 25 MG; Start 04/14/17 at 16:00 Assessment/Plan Chief Complaint/Hosp Course 51-year-old male presented to the emergency room was right flank pain, CT scan of the abdomen and pelvis showed a 4 mm stone in the distal right ureter was right hydronephrosis in addition to bilateral kidney stones. The kidney stones are not obstructing. Plan is to strain the urine, give him pain medications, continue the Flomax and repeat KUB to see if the stone has moved. He should be able to pass the stone on his own and if he does not we could always do a cystoscopy right ureteroscopy laser lithotripsy and remove the stone Problems: ANGELIQUE RUIZ MD Apr 15, 2017 08:36
[2017-04-15] MEDS: TAMSULOSIN (SR) 0.4 MG CAP PO SCH ×2 (08:44→20:17)
[2017-04-15] MEDS: LOSARTAN 25 MG TAB PO SCH (08:44)
--- NOTE | 2017-04-15 10:07 | PN ---
Date/Time of Note Date/Time of Note DATE: 04/15/17 TIME: 10:07 Assessment/Plan VTE Prophylaxis VTE Prophylaxis Intervention: SCD's Lines/Catheters IV Catheter Type (from Nrsg): Peripheral IV Urinary Cath still in place: No Assessment/Plan Assessment/Plan 1. Nephrolithiasis with hydroureteronephrosis- improving - Patient states pain is better controlled but still needing Dilaudid for relief. Encouraged to ask for Toradol - Dr. Hernandes on board and recommendations appreciated. KUB taken but results pending. Per Dr. Hernandes stone appears in right distal ureter. Continue aggressive hydration, Flomax, and believes patient should pass stone on his own. If not may need cystoscopy, lithotripsy, and removal of stone. - CT scan of the abdomen pelvis shows "Obstructing 4 mm stone in the distal right ureter with associated mild right hydroureteronephrosis. Bilateral nonobstructing nephrolithiasis as above." 2. UTI - On levaquin - cultures show no growth 3. DM - holding home metformin - ISS and accuchecks - Carb control diet 4. ADHD - continue on home medication 5. Postnasal drip - continue home PPI which was provided by his ENT - Will add nasal saline for relief 6. Sore throat - believe its secondary to #5 but patient believes hes coming down with something - Will send throat swab for rapid strep and culture - Lozenges PRN 7. hyperlipidemia - Continue statin 8. obesity 9. Hypothyroidism - Continue levothyroxine - TSH slightly elevated and will advise to have TSH checked once acute issues resolve 10. Left meniscal injury - Scheduled for an arthroscopic surgery today by orthopedic surgery. Dr. Marin aware and postponing surgery 11. Disposition - continue monitoring until improvement in condition Subjective 24 Hr Interval Summary Free Text/Dictation Patient still experiencing pain in right buttocks area now but denies passing any stones. Also c/o sore throat with swollen glands that started today. No acute overnight events. Exam/Review of Systems Vital Signs Vitals Vital Signs Date Time Temp Pulse Resp B/P Pulse Ox O2 Delivery O2 Flow Rate FiO2 04/15/17 07:57 98.2 63 18 118/63 95 04/14/17 02:30 Room Air Intake and Output 04/14/17 04/14/17 04/15/17 15:00 23:00 07:00 Intake Total 2000 ml 2500 ml 2300 ml Output Total 2100 ml 2400 ml Balance 2000 ml 400 ml -100 ml Exam General: Obese male, in no acute distress HEENT: NC/AT. [place], EOMI, tenderness submandibular glands, slightly swollen Neck: Supple with full range of motion. Lungs: Clear to auscultation bilaterally no crackles rales or wheezing Heart: Normal S1-S2, Regular rhythm and rate. No murmur, S3, or S4 Abdomen: Soft , nontender, nondistended , bowel sounds are present. No guarding no rebound tenderness Extremities: Normal to inspection, no edema no cyanosis Genitourinary: No CVA tenderness bilaterally. Neurologic: Normal mental status, speech normal, cranial nerves II through XII are intact, motor and sensory are intact, no focal weakness Results Result Diagram: 04/15/1744304/15/17443 Results 24 hrs Laboratory Tests Test 04/15/17 04:44 White Blood Count 10.8 # Red Blood Count 4.41 L Hemoglobin 13.1 L Hematocrit 37.8 L Mean Corpuscular Volume 85.7 Mean Corpuscular Hemoglobin 29.7 Mean Corpuscular Hemoglobin Concent 34.7 Red Cell Distribution Width 12.9 Platelet Count 187 Mean Platelet Volume 10.0 Neutrophils % 63.4 Lymphocytes % 27.6 Monocytes % 6.6 Eosinophils % 1.7 Basophils % 0.3 Nucleated Red Blood Cells % 0.0 Neutrophils # 6.9 Lymphocytes # 3.0 H Monocytes # 0.7 Eosinophils # 0.2 Basophils # 0.0 Nucleated Red Blood Cells # 0.0 Sodium Level 139 Potassium Level 4.0 Chloride Level 105 Carbon Dioxide Level 26 Anion Gap 12 Blood Urea Nitrogen 12 Creatinine 1.10 Glucose Level 126 Calcium Level 8.7 Phosphorus Level 3.4 Magnesium Level 2.0 Albumin 3.2 L Medications Medications Current Medications Sodium Chloride (NS) 1,000 ml @ 150 mls/hr Q6H40M IV Last administered on 03:44; Admin Dose 150 MLS/HR; Start 04/14/17 at 00:15 Hydromorphone HCl (Dilaudid) 1 mg Q3H PRN IV PAIN LEVEL 7-10 Last administered on 04/15/17 05:18; Admin Dose 1 MG; Start 04/14/17 at 00:30 Tamsulosin HCl 0.4 mg 0.4 mg BID PO Last administered on 04/15/17 08:44; Admin Dose 0.4 MG; Start 04/14/17 at 00:30 Levofloxacin/ Dextrose (Levaquin 750 Mg/ D5W 150 ml (Pmx)) 150 ml @ 100 mls/hr Q24H IVPB Last administered on 04/15/17 00:48; Admin Dose 100 MLS/HR; Start 04/14/17 at 00:30 Hydralazine HCl (Apresoline) 10 mg Q4H PRN IV ELEVATED SYSTOLIC BP; Start at 01:00 Phenol (Cepastat Lozenge) 1 lozenge Q1H PRN MT soar throat Last administered on 04/14/17 06:27; Admin Dose 1 LOZENGE; Start 04/14/17 at 04:30 Miscellaneous Information 15 mg BID PO ; Start 04/14/17 at 09:00; Status UNV Pantoprazole (Protonix Tab) 40 mg DAILY@06 PO Last administered on 04/15/17 05:18; Admin Dose 40 MG; Start 04/15/17 at 06:00 Atorvastatin Calcium (Lipitor) 10 mg DAILY@21 PO Last administered on 20:55; Admin Dose 10 MG; Start 04/14/17 at 21:00 Ketorolac Tromethamine (Toradol) 30 mg Q6H PRN IV PAIN Last administered on 14:12; Admin Dose 30 MG; Start 04/14/17 at 14:00; Stop 04/17/17 at 13: 59 Acetaminophen/ Hydrocodone Bitart ([place] (7.5-325)) 1 tab Q4H PRN PO pain Last administered on 04/14/17 23:02; Admin Dose 1 TAB; Start 04/14/17 at 14:00 Losartan Potassium (Cozaar) 25 mg DAILY PO Last administered on 04/15/17 08: 44; Admin Dose 25 MG; Start 04/14/17 at 16:00 TAO MALAVE MD Apr 15, 2017 10:07
[2017-04-15] MEDS ORDERED: CEPASTAT LOZENGE MT PRN (12:30)
[2017-04-15] MEDS: CEPASTAT LOZENGE MT PRN ×2 (13:52→15:26)
[2017-04-15] MEDS: SALINE 0.65% 45 ML NAS SPRAY NASAL SCH ×2 (15:21→20:18)
[2017-04-15 15:51] VITALS: BP 120/68; RESP 18
--- NOTE | 2017-04-15 16:51 | RADRPT ---
PROCEDURE: XR Abdomen. CLINICAL INDICATION: Distal right ureteric stone. TECHNIQUE: AP abdomen x-ray. COMPARISON: CT 04/13/2017. FINDINGS: There is a 5 mm calcification in the expected region of the left kidney. There is a 4 mm calcificati on in the right pelvis, which may correspond to previous noted distal right ureteric stone. There is a nonspecific bowel gas pattern without evidence of obstruction. Scattered stool throughou t the colon. No definite free intraperitoneal air. There are multilevel degenerative changes of the imaged spine. There is no acute osseous abnormality. The visualized lung bases are clear. IMPRESSION: 1. 4 mm calcification in the right pelvis, which may correspond to previous noted distal right urete abdirizak stone. 2. 5 mm calcification in the expected region of the left kidney. RPTAT: AAEE Monkia Acosta Physician Date Time Electronically viewed and signed by Monika Acosta Physician on 04/15/2017 10:10 PH/
[2017-04-15 19:22] VITALS: BP 125/75; RESP 22
[2017-04-15 20:08] VITALS: PULSE 86
[2017-04-15] MEDS: ATORVASTATIN 10 MG TAB PO SCH (20:17)
[2017-04-15 23:00] VITALS: PULSE 82
[2017-04-16] MEDS: SOD CHLORIDE 0.9% 1,000 ML IV SCH ×3 (00:42→08:58)
[2017-04-16] MEDS: LEVOFLOXACIN 750MG/D5W (PMX) 150 ML IVPB SCH (00:47)
[2017-04-16 01:00] VITALS: PULSE 87
[2017-04-16 03:30] VITALS: PULSE 90
[2017-04-16 05:10] VITALS: PULSE 82
[2017-04-16 05:28] LABS: BASOPHIL # 0.1 10^3/ul (0.0-0.1); BASOPHILS % 0.5 % (0.0-2.0); EOSINOPHILS # 0.2 10^3/ul (0.0-0.5); EOSINOPHILS % 2.3 % (0.0-7.0); HEMOGLOBIN 12.6 g/dl (14.0-18.0); LYMPHOCYTES # 2.9 10^3/ul (0.8-2.9); LYMPHOCYTES % 31.9 % (15.0-51.0); MEAN CORPUSCULAR HEMOGLOBIN 29.2 pg (29.0-33.0); MEAN CORPUSCULAR HGB CONC 34.1 g/dl (32.0-37.0); MEAN CORPUSCULAR VOLUME 85.8 fl (82.0-101.0); MEAN PLATELET VOLUME 10.3 fl (7.4-10.4); MONOCYTE # 0.6 10^3/ul (0.3-0.9); MONOCYTES % 6.1 % (0.0-11.0); NEUTROPHIL # 5.4 10^3/ul (1.6-7.5); NEUTROPHILS % 58.9 % (39.0-77.0); PLATELET COUNT 187 10^3/UL (140-415); RED BLOOD COUNT 4.31 10^6/ul (4.70-6.10); RED CELL DISTRIBUTION WIDTH 12.7 % (11.5-14.5); WHITE BLOOD COUNT 9.2 10^3/ul (4.8-10.8)
[2017-04-16 05:56] LABS: ALBUMIN 3.1 g/dl (3.3-4.9); CALCIUM 8.4 mg/dl (8.4-10.2); CREATININE 0.93 mg/dl (0.61-1.24); MAGNESIUM 1.8 mg/dl (1.7-2.5); PHOSPHORUS 3.5 mg/dl (2.5-4.9); POTASSIUM 3.8 mmol/L (3.5-5.1)
[2017-04-16] MEDS: LEVOTHYROXINE 112 MCG TAB PO SCH (06:58)
[2017-04-16] MEDS: PANTOPRAZOLE (EC) 40 MG TAB PO SCH (06:58)
[2017-04-16 07:00] VITALS: BP 141/76; RESP 20
--- NOTE | 2017-04-16 08:50 | CONS ---
Date/Time of Note Date/Time of Note DATE: 04/16/17 TIME: 08:46 Consult Date/Type/Reason Admit Date/Time Apr 13, 2017 at 23:49 Initial Consult Date 04/14/17 Type of Consultation: Urology Reason for Consultation Right ureteral stone Ordering Provider: ROSA GARDUNO Subjective The patient had no pain since yesterday and he is feeling better. No stone has been recovered so far Objective Vital Signs Date Time Temp Pulse Resp B/P Pulse Ox O2 Delivery O2 Flow Rate FiO2 04/16/17 07:00 98.4 81 20 141/76 99 04/16/17 05:10 21 04/14/17 02:30 Room Air Intake and Output 04/15/17 04/15/17 04/16/17 15:00 23:00 07:00 Intake Total 850 ml 3440 ml 3350 ml Output Total 3250 ml 2000 ml Balance 850 ml 190 ml 1350 ml Exam The abdomen is soft ,there is no flank tenderness, the urine is clear, the straining of the urine has not yielded any stone yet Results/Medications Result Diagram: 04/16/17 0435 04/16/17 0435 Results 24 hrs Laboratory Tests Test 04/16/17 04:35 White Blood Count 9.2 Red Blood Count 4.31 L Hemoglobin 12.6 L Hematocrit 37.0 L Mean Corpuscular Volume 85.8 Mean Corpuscular Hemoglobin 29.2 Mean Corpuscular Hemoglobin Concent 34.1 Red Cell Distribution Width 12.7 Platelet Count 187 Mean Platelet Volume 10.3 Neutrophils % 58.9 Lymphocytes % 31.9 Monocytes % 6.1 Eosinophils % 2.3 Basophils % 0.5 Nucleated Red Blood Cells % 0.0 Neutrophils # 5.4 Lymphocytes # 2.9 Monocytes # 0.6 Eosinophils # 0.2 Basophils # 0.1 Nucleated Red Blood Cells # 0.0 Sodium Level 140 Potassium Level 3.8 Chloride Level 107 Carbon Dioxide Level 24 Anion Gap 13 Blood Urea Nitrogen 11 Creatinine 0.93 Glucose Level 104 Calcium Level 8.4 Phosphorus Level 3.5 Magnesium Level 1.8 Albumin 3.1 L Medications Current Medications Sodium Chloride (NS) 1,000 ml @ 150 mls/hr Q6H40M IV Last administered on t 00:42; Admin Dose 150 MLS/HR; Start 04/14/17 at 00:15 Hydromorphone HCl (Dilaudid) 1 mg Q3H PRN IV PAIN LEVEL 7-10 Last administered on 04/15/17 05:18; Admin Dose 1 MG; Start 04/14/17 at 00:30 Tamsulosin HCl 0.4 mg 0.4 mg BID PO Last administered on 04/15/17 20:17; Admin Dose 0.4 MG; Start 04/14/17 at 00:30 Levofloxacin/ Dextrose (Levaquin 750 Mg/ D5W 150 ml (Pmx)) 150 ml @ 100 mls/hr Q24H IVPB Last administered on 04/16/17 00:47; Admin Dose 100 MLS/HR; Start 04/14/17 at 00:30 Hydralazine HCl (Apresoline) 10 mg Q4H PRN IV ELEVATED SYSTOLIC BP; Start at 01:00 Phenol (Cepastat Lozenge) 1 lozenge Q1H PRN MT soar throat Last administered on 04/15/17 15:26; Admin Dose 1 LOZENGE; Start 04/14/17 at 04:30 Pantoprazole (Protonix Tab) 40 mg DAILY@06 PO Last administered on 04/16/17 06:58; Admin Dose 40 MG; Start 04/15/17 at 06:00 Atorvastatin Calcium (Lipitor) 10 mg DAILY@21 PO Last administered on 20:17; Admin Dose 10 MG; Start 04/14/17 at 21:00 Ketorolac Tromethamine (Toradol) 30 mg Q6H PRN IV PAIN Last administered on 14:12; Admin Dose 30 MG; Start 04/14/17 at 14:00; Stop 04/17/17 at 13: 59 Acetaminophen/ Hydrocodone Bitart ([place] (7.5-325)) 1 tab Q4H PRN PO pain Last administered on 04/14/17 23:02; Admin Dose 1 TAB; Start 04/14/17 at 14:00 Losartan Potassium (Cozaar) 25 mg DAILY PO Last administered on 04/15/17 08: 44; Admin Dose 25 MG; Start 04/14/17 at 16:00 Phenol (Cepastat Lozenge) 1 lozenge Q1H PRN MT PAIN; Start 04/15/17 at 12:30 Sodium Chloride (Deep Sea) 2 spray BID NASAL Last administered on 04/15/17t 15 :21; Admin Dose 2 SPRAY; Start 04/15/17 at 14:30 Assessment/Plan Chief Complaint/Hosp Course 51-year-old male presented to the emergency room was right flank pain, CT scan of the abdomen and pelvis showed a 4 mm stone in the distal right ureter was right hydronephrosis in addition to bilateral kidney stones. The kidney stones are not obstructing. He has not had any pain since yesterday repeat KUB today showed no stone but that does not mean that he passed. it only means the stone just that the stone is not visible Plan is to continue strain the urine, give him pain medications, continue the Flomax as outpatient and he should follow-up with his primary care physician and if needed referred to my office was on authorization Problems: ANGELIQUE RUIZ MD Apr 16, 2017 08:50
[2017-04-16] MEDS: LOSARTAN 25 MG TAB PO SCH (08:54)
[2017-04-16] MEDS: SALINE 0.65% 45 ML NAS SPRAY NASAL SCH (08:54)
[2017-04-16] MEDS: TAMSULOSIN (SR) 0.4 MG CAP PO SCH (08:54)
--- NOTE | 2017-04-16 09:24 | RADRPT ---
PROCEDURE: XR Abdomen 1 View. CLINICAL INDICATION: Abdominal pain. Ureteral stone. TECHNIQUE: AP abdomen x-ray. COMPARISON: April 15, [address] April 13, 2017 FINDINGS: A large amount of formed stool is identified throughout the colon. No dilated loops of small bowel are observed. No organomegaly is identified. 4 mm calcification in the right pelvis appears to have moved slightly inferiorly when compared with prior exam. 5 mm calcification over the inferior pole o f the left kidney is stable. A few phleboliths are identified in the left pelvis. Degenerative suarez ges are seen in the hips and spine. IMPRESSION: Large amount of formed stool throughout the colon suggesting constipation. Mild interval inferior movement of a 4 mm calcification in the right pelvis. Finding may reflect sli ght distal movement of the patient's known right ureteral stone. Stable left renal stone. If further characterization of the abdomen is needed repeat CT should be considered. RPTAT: AA .Brian Cordova MD, Date Time Electronically viewed and signed by .Brian Cordova MD, on 04/16/2017 09:24 .P/
[2017-04-16] MEDS ORDERED: POLYETHYLENE GLYCOL 17 GM PACKET PO SCH (10:30)
[2017-04-16] MEDS ORDERED: SENNA/DOCUSATE NA (8.6MG/50MG) TAB PO SCH (11:00)
[2017-04-16] MEDS: KETOROLAC 30 MG INJ IV PRN (11:08)
[2017-04-16] MEDS ORDERED: HYDROmorphONE 2 MG TAB PO PRN (14:49)
--- NOTE | 2017-04-16 14:49 | PN ---
Date/Time of Note Date/Time of Note DATE: 04/16/17 TIME: 14:43 Assessment/Plan VTE Prophylaxis VTE Prophylaxis Intervention: SCD's Lines/Catheters IV Catheter Type (from Nrsg): Peripheral IV Urinary Cath still in place: No Assessment/Plan Assessment/Plan 1. Nephrolithiasis with hydroureteronephrosis- resolving - Patient states pain is better controlled on Dilaudid - Dr. Hernandes on board and recommendations appreciated. KUB shows "Large amount of formed stool throughout the colon suggesting constipation. Mild interval inferior movement of a 4 mm calcification in the right pelvis. Finding may reflect slight distal movement of the patient's known right ureteral stone. Stable left renal stone." Continue pain control, flomax, and straining urine. Follow up as needed with referral from PCP - CT scan of the abdomen pelvis shows "Obstructing 4 mm stone in the distal right ureter with associated mild right hydroureteronephrosis. Bilateral nonobstructing nephrolithiasis as above." 2. UTI - Completed course of Levaquin - cultures show no growth 3. DM - holding home metformin - ISS and accuchecks - Carb control diet 4. ADHD - continue on home medication 5. Postnasal drip - continue home PPI which was provided by his ENT - Nasal saline for relief 6. Sore throat - Lozenges PRN 7. hyperlipidemia - Continue statin 8. obesity 9. Hypothyroidism - Continue levothyroxine - TSH slightly elevated and will advise to have TSH checked once acute issues resolve 10. Left meniscal injury - Scheduled for an arthroscopic surgery today by orthopedic surgery. Dr. Marin aware and postponing surgery 11. Disposition - Medically stable for discharge home Subjective 24 Hr Interval Summary Free Text/Dictation Patient doing well and states pain has improved after Toradol. Still experiencing constipation but given bowel regime and feels as if ready to have BM soon. Denies any acute overnight events. Exam/Review of Systems Vital Signs Vitals Vital Signs Date Time Temp Pulse Resp B/P Pulse Ox O2 Delivery O2 Flow Rate FiO2 04/16/17 07:00 98.4 81 20 141/76 99 04/16/17 05:10 21 04/14/17 02:30 Room Air Intake and Output 04/15/17 04/15/17 04/16/17 15:00 23:00 07:00 Intake Total 850 ml 3440 ml 3350 ml Output Total 3250 ml 2000 ml Balance 850 ml 190 ml 1350 ml Exam General: Obese male, in no acute distress HEENT: NC/AT. [place], EOMI, Neck: Supple with full range of motion. Lungs: Clear to auscultation bilaterally no crackles rales or wheezing Heart: Normal S1-S2, Regular rhythm and rate. No murmur, S3, or S4 Abdomen: Soft , nontender, nondistended , bowel sounds are present. No guarding no rebound tenderness Extremities: Normal to inspection, no edema no cyanosis Genitourinary: No CVA tenderness bilaterally. Neurologic: Normal mental status, speech normal, cranial nerves II through XII are intact, motor and sensory are intact, no focal weakness Results Result Diagram: 04/16/1743404/16/17434 Results 24 hrs Laboratory Tests Test 04/16/17 04:35 White Blood Count 9.2 Red Blood Count 4.31 L Hemoglobin 12.6 L Hematocrit 37.0 L Mean Corpuscular Volume 85.8 Mean Corpuscular Hemoglobin 29.2 Mean Corpuscular Hemoglobin Concent 34.1 Red Cell Distribution Width 12.7 Platelet Count 187 Mean Platelet Volume 10.3 Neutrophils % 58.9 Lymphocytes % 31.9 Monocytes % 6.1 Eosinophils % 2.3 Basophils % 0.5 Nucleated Red Blood Cells % 0.0 Neutrophils # 5.4 Lymphocytes # 2.9 Monocytes # 0.6 Eosinophils # 0.2 Basophils # 0.1 Nucleated Red Blood Cells # 0.0 Sodium Level 140 Potassium Level 3.8 Chloride Level 107 Carbon Dioxide Level 24 Anion Gap 13 Blood Urea Nitrogen 11 Creatinine 0.93 Glucose Level 104 Calcium Level 8.4 Phosphorus Level 3.5 Magnesium Level 1.8 Albumin 3.1 L Medications Medications Current Medications Sodium Chloride (NS) 1,000 ml @ 150 mls/hr Q6H40M IV Last administered on 08:58; Admin Dose 150 MLS/HR; Start 04/14/17 at 00:15 Hydromorphone HCl (Dilaudid) 1 mg Q3H PRN IV PAIN LEVEL 7-10 Last administered on 04/15/17 05:18; Admin Dose 1 MG; Start 04/14/17 at 00:30 Tamsulosin HCl (Flomax) 0.4 mg BID PO Last administered on 04/16/17 08:54; Admin Dose 0.4 MG; Start 04/14/17 at 00:30 Hydralazine HCl (Apresoline) 10 mg Q4H PRN IV ELEVATED SYSTOLIC BP; Start at 01:00 Phenol (Cepastat Lozenge) 1 lozenge Q1H PRN MT soar throat Last administered on 04/15/17 15:26; Admin Dose 1 LOZENGE; Start 04/14/17 at 04:30 Pantoprazole (Protonix Tab) 40 mg DAILY@06 PO Last administered on 04/16/17 06:58; Admin Dose 40 MG; Start 04/15/17 at 06:00 Atorvastatin Calcium (Lipitor) 10 mg DAILY@21 PO Last administered on 20:17; Admin Dose 10 MG; Start 04/14/17 at 21:00 Ketorolac Tromethamine (Toradol) 30 mg Q6H PRN IV PAIN Last administered on 11:08; Admin Dose 30 MG; Start 04/14/17 at 14:00; Stop 04/17/17 at 13: 59 Acetaminophen/ Hydrocodone Bitart ([place] (7.5-325)) 1 tab Q4H PRN PO pain Last administered on 04/14/17 23:02; Admin Dose 1 TAB; Start 04/14/17 at 14:00 Losartan Potassium (Cozaar) 25 mg DAILY PO Last administered on 04/16/17 08: 54; Admin Dose 25 MG; Start 04/14/17 at 16:00 Phenol (Cepastat Lozenge) 1 lozenge Q1H PRN MT PAIN; Start 04/15/17 at 12:30 Sodium Chloride (Deep Sea) 2 spray BID NASAL Last administered on 04/16/17 08 :54; Admin Dose 2 SPRAY; Start 04/15/17 at 14:30 Polyethylene Glycol (Miralax) 17 gm DAILY PO Last administered on 04/16/17 11 :17; Admin Dose 17 GM; Start 04/16/17 at 10:30 Senna/Docusate Sodium (Senokot-S) 1 tab DAILY PO Last administered on 11:17; Admin Dose 1 TAB; Start 04/16/17 at 11:00 Levofloxacin (Levaquin) 750 mg DAILY@06 PO ; Start 04/17/17 at 06:00 TAO MALAVE MD Apr 16, 2017 14:49 TAO MALAVE MD Apr 16, 2017 14:49
[2017-04-16] MEDS ORDERED: TAMS-14 PO (14:56)
[2017-04-16] MEDS ORDERED: KETO10TA PO (14:56)
--- NOTE | 2017-04-16 15:02 | PDOCDIS ---
Discharge Instructions DIAGNOSIS Discharge Diagnosis 1. Nephrolithiasis with hydroureteronephrosis- resolved 2. UTI- resolved 3. DM 5. Postnasal drip 6. hyperlipidemia 7. Hypothyroidism 8. Left meniscal injury CONDITION Patient Condition: Stable HOME CARE INSTRUCTIONS: Diet Instructions: Low Fat /Cholesterol ACTIVITY: Activity Restrictions: No Restrictions FOLLOW UP/APPOINTMENTS Follow-up Plan 1. Follow up with your primary care physician in 1 week 2. Take Flomax twice a day until seen by your PCP 3. Keep well hydrated and continue straining urin 4. If experiencing similar symptoms, have PCP refer you to Urologist or return to the ED based on severity of symptoms 5. Take Toradol as needed for pain REFERRALS Other Referrals Clayton Hernandes MD Specialty: Urology Office Address [address] [place] [address] Office TAO MALAVE MD Apr 16, 2017 15:02
--- NOTE | 2017-04-16 15:03 | DS ---
Date/Time of Note Date/Time of Note DATE: 04/16/17 TIME: 15:03 Discharge Summary Admission/Discharge Info Admit Date/Time Apr 13, 2017 at 23:49 Discharge Date/Time Discharge Diagnosis 1. Nephrolithiasis with hydroureteronephrosis- resolved 2. UTI- resolved 3. DM 5. Postnasal drip 6. hyperlipidemia 7. Hypothyroidism 8. Left meniscal injury Patient Condition: Stable Consults Urology Procedures PROCEDURE: CT abdomen and pelvis without contrast. CLINICAL INDICATION: Right lateral abdominal pain. Flank pain. TECHNIQUE: CT of the abdomen and pelvis was performed without contrast. Coronal and sagittal reformatted images were obtained from the axial source images. Images were reviewed on a high-resolution PACS workstation. The total exam CTDI equals 23.75 mGy and the total exam DLP equals 1454.39 mGy-cm. DICOM images are available. One or more of the following dose reduction techniques were used: - Automated exposure control. - Adjustment of the mA and/or kV according to patient size. - Use of iterative reconstruction technique. COMPARISON: None available. FINDINGS: Visualized lower thorax: The visualized lung bases are clear. The visualized heart is unremarkable. Hepatobiliary system and spleen: The liver is grossly unremarkable. There is no intra or extrahepatic biliary ductal dilatation. The gallbladder is grossly unremarkable. The spleen is grossly unremarkable. The pancreas is grossly unremarkable. Adrenal glands and genitourinary system: The adrenal glands are grossly unremarkable. There is an obstructing 4 mm stone in the distal right ureter with associated mild right hydronephrosis and hydroureter and right perinephric and periureteral inflammatory change. There is a 6 mm nonobstructing stone at the midportion of the left kidney. There is a punctate nonobstructing stone at the upper pole of the right kidney and a 4 mm nonobstructing stone at the midportion of the right kidney. The urinary bladder is grossly unremarkable. The prostate gland and seminal vesicles are grossly unremarkable. There are moderate bilateral fat containing inguinal hernias. Gastrointestinal system: There is sigmoid diverticulosis without bowel wall thickening or evidence of obstruction. The appendix is in the right lower quadrant and is unremarkable. Peritoneum, vascular, and lymphatics: There is no free intraperitoneal air or free fluid. There is no mesenteric or retroperitoneal adenopathy. The aorta is nonaneurysmal. Musculoskeletal system and soft tissues: There is moderate to severe multilevel degenerative enthesopathy. There are no concerning osseous lesions. The soft tissues are unremarkable. IMPRESSION: 1. Obstructing 4 mm stone in the distal right ureter with associated mild right hydroureteronephrosis. 2. Bilateral nonobstructing nephrolithiasis as above. 3. Moderate bilateral fat containing inguinal hernias. 4. Sigmoid diverticulosis. PROCEDURE: XR Abdomen. CLINICAL INDICATION: Distal right ureteric stone. TECHNIQUE: AP abdomen x-ray. COMPARISON: CT 04/13/2017. FINDINGS: There is a 5 mm calcification in the expected region of the left kidney. There is a 4 mm calcification in the right pelvis, which may correspond to previous noted distal right ureteric stone. There is a nonspecific bowel gas pattern without evidence of obstruction. Scattered stool throughout the colon. No definite free intraperitoneal air. There are multilevel degenerative changes of the imaged spine. There is no acute osseous abnormality. The visualized lung bases are clear. IMPRESSION: 1. 4 mm calcification in the right pelvis, which may correspond to previous noted distal right ureteric stone. 2. 5 mm calcification in the expected region of the left kidney. PROCEDURE: XR Abdomen 1 View. CLINICAL INDICATION: Abdominal pain. Ureteral stone. TECHNIQUE: AP abdomen x-ray. COMPARISON: April 15, [address] April 13, 2017 FINDINGS: A large amount of formed stool is identified throughout the colon. No dilated loops of small bowel are observed. No organomegaly is identified. 4 mm calcification in the right pelvis appears to have moved slightly inferiorly when compared with prior exam. 5 mm calcification over the inferior pole of the left kidney is stable. A few phleboliths are identified in the left pelvis. Degenerative changes are seen in the hips and spine. IMPRESSION: Large amount of formed stool throughout the colon suggesting constipation. Mild interval inferior movement of a 4 mm calcification in the right pelvis. Finding may reflect slight distal movement of the patient's known right ureteral stone. Stable left renal stone. Hx of Present Illness This is a 51-year-old male who presented to the emergency department complaining of right-sided flank pain. Patient stated the pain was severe and started on his right flank and then moved towards the right lower abdomen. He was expressing some nausea. Pain is the most severe pain is felt in his life. He did receive relief from Dilaudid in the ED. He denies any known history of kidney stones. Of note patient also scheduled to have on 04/14 a left knee arthroscopy for meniscal injury, like us to contact his surgeon Dr. Marin. Allergies: Sulfa Medications: See MAR Exam General: Patient is an obese male lying in bed comfortably at this time in no acute distress HEENT: Atraumatic, normocephalic. The pupils are equal, round and reactive. Extraocular motor are intact Neck: Supple with full range of motion. No rigidity or meningismus Chest: Nontender Lungs: Clear to auscultation bilaterally no crackles rales or wheezing Heart: Normal S1-S2, Regular rhythm and rate. No murmur, S3, or S4 Abdomen: Soft , nontender, nondistended , bowel sounds are present. No guarding no rebound tenderness , No masses or organomegaly. No costovertebral temporal angle mass Extremities: Normal to inspection, no edema no cyanosis Genitourinary: No CVA tenderness bilaterally. Neurologic: Normal mental status, speech normal, cranial nerves II through XII are intact, motor and sensory are intact, no focal weakness Hospital Course Patient was admitted for further workup and pain control. Patient was started on IV fluids and Urology was consulted. Per Urology recommendations patient was instructed to strain his urine, continue on flomax and KUB was ordered to determine if stone was radiopaque. Patient should be able to pass the stone on his own but if he was not plans for cystoscopy with erica lithotripsy and stone removal. Patient was found to have +UA but denied any urinary symptoms. he was started on IV antibiotics and urine cultures were sent. Patient developed sore throat and was given nasal saline and throat lozenges. KUB showed movement of the 4mm stone in the pelvis. Patient pain improved but was experiencing constipation. He was given a bowel regime and discharged home in stable condition. Home Meds Active Scripts Ketorolac Tromethamine* (Ketorolac Tromethamine*) 10 Mg Tablet, 10 MG PO Q6H Y for PAIN for 10 Days, #30 TAB Prov:TAO MALAVE MD 04/16/17 Tamsulosin Hcl* (Flomax*) 0.4 Mg Cap.er.24h, 0.4 MG PO BID for 30 Days, #60 CAP Prov:TAO MALAVE MD 04/16/17 Reported Medications Metformin Hcl* (Metformin Hcl*) 500 Mg Tablet, 500 MG PO WITH BREAKFAST DINNE, # 60 TAB 04/13/17 Omeprazole* (Omeprazole*) 40 Mg Capsule.dr, 40 MG PO DAILY, #30 CAP 04/13/17 Losartan Potassium* (Losartan Potassium*) 25 Mg Tablet, 25 MG PO DAILY, TAB 04/13/17 Simvastatin* (Zocor*) 20 Mg Tablet, 20 MG PO QHS, #30 TAB 04/13/17 Levothyroxine Sodium* (Levothyroxine Sodium*) 112 Mcg Tablet, 112 MCG PO BEFORE BREAKFAST, #30 TAB 04/13/17 Amphet Zmn-Aurlfl-Q-Amphet (Adderall XR) 15 Mg Cap.sr.24h, 15 MG PO BID, CAP 04/13/17 Discontinued Reported Medications Aspirin* (Aspirin* Chew) 81 Mg Tab.chew, 81 MG PO DAILY, TAB.CHEW 04/21/16 Omeprazole* (Omeprazole*) 20 Mg Capsule.dr, 20 MG PO BID, #60 CAP 04/21/16 Levothyroxine Sodium* (Synthroid*) 75 Mcg Tablet, 75 MCG PO BEFORE BREAKFAST, # 30 TAB 04/21/16 Amphet Zpj-Wrmoem-L-Amphet (Adderall) 5 Mg Tablet, 5 MG PO DAILY, TAB 04/21/16 Follow-up Plan 1. Follow up with your primary care physician in 1 week 2. Take Flomax twice a day until seen by your PCP 3. Keep well hydrated and continue straining urin 4. If experiencing similar symptoms, have PCP refer you to Urologist or return to the ED based on severity of symptoms 5. Take Toradol as needed for pain Primary Care Provider Not On Staff Doctor Time spent on discharge: > 30 minutes Pending Labs Laboratory Tests Test 04/16/17 04:35 White Blood Count 9.210^3/ul (4.8-10.8) Red Blood Count 4.3110^6/ul (4.70-6.10) Hemoglobin 12.6g/dl (14.0-18.0) Hematocrit 37.0% (42.0-52.0) Mean Corpuscular Volume 85.8fl (82.0-101.0) Mean Corpuscular Hemoglobin 29.2pg (29.0-33.0) Mean Corpuscular Hemoglobin Concent 34.1g/dl (32.0-37.0) Red Cell Distribution Width 12.7% (11.5-14.5) Platelet Count 67182^3/UL (140-415) Mean Platelet Volume 10.3fl (7.4-10.4) Neutrophils % 58.9% (39.0-77.0) Lymphocytes % 31.9% (15.0-51.0) Monocytes % 6.1% (0.0-11.0) Eosinophils % 2.3% (0.0-7.0) Basophils % 0.5% (0.0-2.0) Nucleated Red Blood Cells % 0.0/100WBC (0.0-0.0) Neutrophils # 5.410^3/ul (1.6-7.5) Lymphocytes # 2.910^3/ul (0.8-2.9) Monocytes # 0.610^3/ul (0.3-0.9) Eosinophils # 0.210^3/ul (0.0-0.5) Basophils # 0.110^3/ul (0.0-0.1) Nucleated Red Blood Cells # 0.010^3/ul (0.0-0.0) Sodium Level 140mmol/L (135-144) Potassium Level 3.8mmol/L (3.5-5.1) Chloride Level 107mmol/L (97-110) Carbon Dioxide Level 24mmol/L (21-31) Anion Gap 13 (8-16) Blood Urea Nitrogen 11mg/dl (7-20) Creatinine 0.93mg/dl (0.61-1.24) Glucose Level 104mg/dl (70-220) Calcium Level 8.4mg/dl (8.4-10.2) Phosphorus Level 3.5mg/dl (2.5-4.9) Magnesium Level 1.8mg/dl (1.7-2.5) Albumin 3.1g/dl (3.3-4.9) TAO MALAVE MD Apr 16, 2017 15:03
[2017-04-16 16:29] VITALS: BP 138/78; RESP 18
[2017-04-17] MEDS ORDERED: LEVOFLOXACIN 750 MG TABLET PO SCH (06:00)
== END 2017-04-16 17:05 | disposition home or self-care (01) | DRG 694 ==
LOC: E/R 18:47 → MS1 23:49
PROVIDERS: ADMIT Family Medicine; ATTEND Family Medicine
DX: N20.0 Calculus of kidney (principal); N13.30 Unspecified hydronephrosis; N39.0 Urinary tract infection, site not specified; E11.9 Type 2 diabetes mellitus without complications; F90.9 Attention-deficit hyperactivity disorder, unspecified type; S83.8X2A Sprain of other specified parts of left knee, initial encounter; R09.82 Postnasal drip; E03.9 Hypothyroidism, unspecified; K57.30 Diverticulosis of large intestine without perforation or abscess without bleeding; E78.5 Hyperlipidemia, unspecified; E66.9 Obesity, unspecified; Z68.35 Body mass index [BMI] 35.0-35.9, adult; X58.XXXA Exposure to other specified factors, initial encounter; Y92.009 Unspecified place in unspecified non-institutional (private) residence as the place of occurrence of the external cause
CPT/HCPCS: 36415; 74000; 74176; 80053; 80069; 81001; 82962; 83036; 83690; 83735; 84443; 84484; 85025; 85730; 87070; 87086; 93005; 94660; 96374; 96375; 96376; J0360; J0692; J1170; J1885; J1956; J2270; J2405; J3475; J7030

== ENCOUNTER 2017-05-19 06:01 | Day surgery (SDC) | END 2017-05-19 16:48 | disposition home or self-care (01) ==